=== PATIENT | male | born 1995 | race Caucasian/White ===

== ENCOUNTER 2021-07-22 10:50 | Outpatient (REF) | payer OTHER, SELFPAY ==
[2021-07-22 11:16] LABS: MANUAL DIFF FLAG NO
[2021-07-22 11:47] LABS: Basophils Percent Auto 0.6 % (0-2); Eosinophils Absolute Auto 0.1 X10*3/uL (0.0-0.4); Eosinophils Percent Auto 1.1 % (0-4); Hematocrit 43.4 % (42.0-52.0); Imm Gran Abs Auto 0.01 X10*3/uL (0.00-0.03); Imm Gran Pct Auto 0.2 % (0.0-0.4); Lymphocytes Percent Auto 35.8 % (20-40); Mean Corpuscular HGB Conc 32.3 g/dl (31.0-36.0); Mean Corpuscular Hemoglobin 25.2 pg (27.0-33.0); Mean Corpuscular Volume 78.1 fL (80.0-98.0); Mean Platelet Volume 10.6 fL (9.4-12.4); Monocytes Absolute Auto 0.4 X10*3/uL (0.1-1.2); Monocytes Percent Auto 6.4 % (2-11); Neutrophils Absolute Auto 3.1 x10*3/uL (2.0-8.3); Neutrophils Percent Auto 55.9 % (45-73); Platelet Count 345 X10*3/uL (160-400); Red Blood Count 5.56 X10*6/uL (4.60-5.80); Red Cell Distribution Width 13.7 % (11.0-16.0); White Blood Count 5.5 X10*3/uL (4.8-10.8)
[2021-07-22 12:24] LABS: Alanine Aminotransferase 30 U/L (0-40); Albumin Level 4.5 g/dL (3.5-5.0); Alkaline Phosphatase 118 U/L (39-117); Anion Gap 12 (12-20); Aspartate Amino Transferase 24 U/L (5-37); Bilirubin Total 0.3 mg/dL (0.0-1.0); Blood Urea Nitrogen 9 mg/dL (9-16); Calcium 9.8 mg/dL (8.4-10.2); Carbon Dioxide 26 mmol/L (22-29); Chloride 105 mmol/L (96-108); Cholesterol 192 mg/dL; Estimated Glomerular Filt Rate > 60; Glucose Fasting 101 mg/dL (60-99); HDL Cholesterol 34 mg/dL; LDL Cholesterol Calculated 131 mg/dl; Potassium 4.3 mmol/L (3.3-5.1); Sodium 139 mmol/L (135-145); Total Protein 7.9 g/dL (6.5-8.0); Triglycerides 136 mg/dL
[2021-07-22 12:34] LABS: TSH reflex Free T4 0.85 uIU/mL (0.32-4.0)
== END 2021-07-22 10:51 | disposition home or self-care (01) ==
LOC: HO.LAB 10:50
PROVIDERS: PCP Nurse Practitioner Family; Visit Provider Nurse Practitioner Family
DX: I10 Essential (primary) hypertension (principal); F41.9 Anxiety disorder, unspecified; F32.A Depression, unspecified; E78.00 Pure hypercholesterolemia, unspecified; Z76.89 Persons encountering health services in other specified circumstances
CPT/HCPCS: 36415; 80053; 80061; 84443; 85025

== ENCOUNTER 2021-09-30 14:27 | Outpatient (REF) | payer OTHER, SELFPAY ==
--- NOTE | ~2021-09-30 | XR_ITS ---
EXAMINATION: XR FOOT, LEFT CLINICAL INFORMATION: Pain on the plantar surface of left heel/foot COMPARISON: None TECHNIQUE: AP, lateral, and oblique views of the left foot. FINDINGS: The bones and soft tissues are normal. No fracture. Alignment is anatomic. Joint spaces are maintained. XR/XR foot LT min 3V IMPRESSION: Unremarkable left foot exam.
== END 2021-09-30 14:28 | disposition home or self-care (01) ==
LOC: HO.XRAY 14:27
PROVIDERS: PCP Nurse Practitioner Family; Visit Provider Nurse Practitioner Family
DX: M79.672 Pain in left foot (principal)
CPT/HCPCS: 73630

== ENCOUNTER → 2021-10-18 12:05 | Outpatient (REF) | payer OTHER, SELFPAY ==
--- NOTE | 2021-10-18 12:11 | ECG_ITS ---
Test Reason : HTN Blood Pressure : / mmHG Vent. Rate : 073 BPM Atrial Rate : 073 BPM P-R Int : 138 ms QRS Dur : 092 ms QT Int : 352 ms P-R-T Axes : 021 032 012 degrees QTc Int : 387 ms Normal sinus rhythm Normal ECG No previous ECGs available Referred By: Geneva Melissa Electronically Signed By:Lance Gordon
== END ==
LOC: HO.CARD 12:05
PROVIDERS: PCP Nurse Practitioner Family; Visit Provider Nurse Practitioner Family
DX: I10 Essential (primary) hypertension (principal)
CPT/HCPCS: 93005

== ENCOUNTER 2021-10-31 02:29 | Emergency (ER) | payer OTHER, SELFPAY ==
--- NOTE | ~2021-10-31 | XR_ITS ---
EXAMINATION: XR CHEST CLINICAL INFORMATION: Chest pain COMPARISON: 01/17/2017 TECHNIQUE: Frontal view of the chest was obtained. FINDINGS: Cardiac leads overlie the chest. The lungs are well expanded. There is no focal consolidation, edema, or effusion. No pneumothorax. The cardiomediastinal silhouette is within normal limits. No acute osseous abnormality. XR/XR chest 1V IMPRESSION: Clear lungs.
--- NOTE | 2021-10-31 02:34 | ECG_ITS ---
Test Reason : CHEST PAIN Blood Pressure : / mmHG Vent. Rate : 091 BPM Atrial Rate : 091 BPM P-R Int : 146 ms QRS Dur : 086 ms QT Int : 346 ms P-R-T Axes : 047 030 021 degrees QTc Int : 425 ms Normal sinus rhythm Normal ECG When compared with ECG of 18-OCT-2021 12:13, Nonspecific T wave abnormality now evident in Lateral leads Referred By: Estee Lau Electronically Signed By:MICHAEL BETANCOURT
[2021-10-31 02:46] VITALS: BP 164/117; PULSE 77; RESP 17; TEMP 37; O2SAT 98; BMI 37.3
--- NOTE | 2021-10-31 02:51 | ED.CHESTPAIN ---
HPI - Chest Pain General Chief Complaint: Chest Pain Stated Complaint: Chest Pain, 191/145 BP Time Seen by Provider: 10/31/21 02:47 History of Present Illness HPI narrative: Patient is a 25-year-old male presents today with having chest pain. The chest pain is mid chest. Not associated with any shortness breath diaphoresis. It is fairly sudden onset. No history of blood clots. No history of travel. No family history of blood clots. Patient has a history of hypertension. No history of diabetes, no history of NE no family history of NE. Patient from home. Positive coughing but patient is immunized for COVID. No diaphoresis. History of high blood pressure patient's baseline on lisinopril. Last dose was yesterday. Patient been having similar pains at night. Wakes him up. No shortness of breath associated with these episodes. Related Data Home Medications Medication Instructions Recorded Confirmed emtricitabine 200 mg-tenofovir 1 tab PO DAILY 07/22/21 10/18/21 disoproxil fumarate 300 mg tablet Previous Rx's Medication Instructions Recorded diclofenac sodium 1 % topical gel 2 g TOPICAL QID #100 g 07/22/21 (Voltaren Arthritis Pain) blood pressure monitor #1 ea 09/29/21 ibuprofen 600 mg tablet 600 mg PO Q6-8H PRN #30 tab 09/30/21 hydroxyzine HCl 10 mg tablet 10 mg PO BID PRN #10 tab 10/18/21 lisinopril 5 mg tablet 5 mg PO DAILY #30 tab 10/18/21 Allergies Allergy/AdvReac Type Severity Reaction Status Date / Time No Known Allergies Allergy Verified 10/18/21 11:43 [No Known Allergies*] Review of Systems Review of Systems: Positive chest pain No shortness breath no diaphoresis Yes all other systems are reviewed and are negative FORMERLY [facility] Past Medical History Attestation statement: The following information was validated with the patient. Surgical History No pertinent past surgical history Family History Family History Mother HTN (hypertension) Heart attack Social History Social History Household Members Other:: partner Housing: Apartment Alcohol intake: current Alcohol intake frequency: holidays/special occasions only Patient Tobacco Use Status: Never used Tobacco e-Cigarette/Vaping Use: Never Used Second Hand Smoke Exposure: No Advance Directives: No Advance Directives Information Provided: Yes service: No Current occupational status: employed Current occupational exposures/hazards: No Cognitive needs: No Hearing needs: No Vision needs: Yes Physical Exam Vital Signs: Vital Signs: Last Vital Signs Temp 98.6 F 10/31/21 02:46 Pulse 82 10/31/21 04:40 Resp 20 10/31/21 04:40 BP 140/98 H 10/31/21 04:40 Pulse Ox 97 10/31/21 04:40 BMI result Body Mass Index 37.3 Appearance: Alert. Oriented X3. No acute distress. Eyes: Pupils equal, round and reactive to light. ENT: Pharynx normal. Neck: Normal inspection. Neck supple. No lymph nodes noted. No crepitus CVS: Normal heart rate and rhythm. Pulses normal. Normal S1 and S2 Respiratory: No respiratory distress. Breath sounds normal. No Wheezing. No rales Abdomen: Soft and nontender. No rigidity. No distention. good BS x4 Skin: Skin warm and dry. Normal skin color. Normal skin turgor. Extremities: No lower extremity edema. Neurovascular intact to all extremities. No Lacerations. No Rash Neuro: Oriented X 3. No motor deficit. No sensory deficit. Moving all extermities. No slurred speech MDM - Chest Pain MDM Narrative Medical decision making narrative: Showed a sinus pattern heart rate is 90 [place] QRS QTC within normal limits is no acute ST segment elevation noted. Two sets of cardiac enzymes are negative. Patient's history not consistent with ACS. Patient's has no risk for PE. Will discharge patient home. In stable condition. Blood pressure monitor given medication with good results. Explained to patient the need for follow-up. In stable condition Medical Records Data Attestation: I reviewed the patient's medical records. Lab Data Attestation: I reviewed the patient's lab results. Result diagrams: 10/31/21 02:56 10/31/21 02:56 Labs: Lab Results 10/31/21 10/31/21 10/31/21 Range/Units 02:56 02:56 02:56 WBC 6.6 (4.8-10.8) X10*3/uL RBC 5.29 (4.60-5.80) X10*6/uL Hgb 13.1 L (14.0-18.0) g/dl Hct 41.0 L (42.0-52.0) % MCV 77.5 L (80.0-98.0) fL MCH 24.8 L (27.0-33.0) pg MCHC 32.0 (31.0-36.0) g/dl RDW 14.3 (11.0-16.0) % Plt Count 330 (160-400) X10*3/uL MPV 10.6 (9.4-12.4) fL Immature Gran % (Auto) 0.2 (0.0-0.4) % Neut % (Auto) 44.7 L (45-73) % Lymph % (Auto) 43.8 H (20-40) % [place] % (Auto) 9.0 (2-11) % Eos % (Auto) 1.8 (0-4) % Baso % (Auto) 0.5 (0-2) % Lymph # (Auto) 2.9 (1.2-4.9) X10*3/uL [place] # (Auto) 0.6 (0.1-1.2) X10*3/uL Eos # (Auto) 0.1 (0.0-0.4) X10*3/uL Baso # (Auto) 0.0 (0.0-0.2) X10*3/uL Abs Immat Gran (auto) 0.01 (0.00-0.03) X10*3/uL Absolute Neuts (auto) 2.9 (2.0-8.3) x10*3/uL Absolute Nucleated RBC 0.000 (0.0-0.012) X10*3/uL Nucleated RBC % (auto) 0.0 (0.0-0.2) /100WBC Sodium 138 (135-145) mmol/L Potassium 3.8 (3.3-5.1) mmol/L Chloride 105 (96-108) mmol/L Carbon Dioxide 26 (22-29) mmol/L Anion Gap 11 L (12-20) BUN 8 L (9-16) mg/dL Creatinine 0.89 (0.5-1.4) mg/dL Estim Creat Clear Calc 160.4 Estimated GFR > 60 Random Glucose 128 H (60-115) mg/dL Calcium 9.0 D (8.4-10.2) mg/dL Troponin I High Sens (<3.5-35.0) ng/L COVID-19 ([facility]LENE) Negative (Negative) COVID-19 Clin Com See Note 10/31/21 10/31/21 Range/Units 02:56 03:58 WBC (4.8-10.8) X10*3/uL RBC (4.60-5.80) X10*6/uL Hgb (14.0-18.0) g/dl Hct (42.0-52.0) % MCV (80.0-98.0) fL MCH (27.0-33.0) pg MCHC (31.0-36.0) g/dl RDW (11.0-16.0) % Plt Count (160-400) X10*3/uL MPV (9.4-12.4) fL Immature Gran % (Auto) (0.0-0.4) % Neut % (Auto) (45-73) % Lymph % (Auto) (20-40) % [place] % (Auto) (2-11) % Eos % (Auto) (0-4) % Baso % (Auto) (0-2) % Lymph # (Auto) (1.2-4.9) X10*3/uL [place] # (Auto) (0.1-1.2) X10*3/uL Eos # (Auto) (0.0-0.4) X10*3/uL Baso # (Auto) (0.0-0.2) X10*3/uL Abs Immat Gran (auto) (0.00-0.03) X10*3/uL Absolute Neuts (auto) (2.0-8.3) x10*3/uL Absolute Nucleated RBC (0.0-0.012) X10*3/uL Nucleated RBC % (auto) (0.0-0.2) /100WBC Sodium (135-145) mmol/L Potassium (3.3-5.1) mmol/L Chloride (96-108) mmol/L Carbon Dioxide (22-29) mmol/L Anion Gap (12-20) BUN (9-16) mg/dL Creatinine (0.5-1.4) mg/dL Estim Creat Clear Calc Estimated GFR Random Glucose (60-115) mg/dL Calcium (8.4-10.2) mg/dL Troponin I High Sens < 3.5 < 3.5 (<3.5-35.0) ng/L COVID-19 ([facility]LENE) (Negative) COVID-19 Clin Com Discharge Plan Discharge Clinical Impression: Hypertension, Chest pain Patient Disposition: Home, Self-Care Prescriptions: No Action ibuprofen 600 mg tablet 600 mg PO Q6-8H PRN (Reason: for pain) Qty: 30 0RF emtricitabine-tenofovir (TDF) 200-300 mg tablet 1 tab PO DAILY 0RF diclofenac sodium [Voltaren Arthritis Pain] 1 % gel 2 g topical QID Qty: 100 0RF Rx Instructions: apply to single elbow, wrist or hand; for hand includes palm/fingers/back of hand lisinopril 5 mg tablet 5 mg PO DAILY Qty: 30 0RF hydroxyzine HCl 10 mg tablet 10 mg PO BID PRN (Reason: anxiety) Qty: 10 0RF (DME) blood pressure monitor Kit See Rx Instructions .Route Qty: 1 0RF Rx Instructions: As directed Referrals: Physician,Unknown J [Primary Care Provider] -
[2021-10-31] MEDS: Magnesium Hydrox/Alum Hydrox 30 ML ORAL.SUSP PO (02:59)
[2021-10-31] MEDS: Aspirin 81 MG TAB.CHEW 324 MG PO (02:59)
[2021-10-31] MEDS: lisinopriL 10 MG TABLET PO (02:59)
[2021-10-31 03:02] VITALS: BP 145/101; PULSE 85; RESP 17; O2SAT 98
[2021-10-31 03:02] LABS: Basophils Percent Auto 0.5 % (0-2); Eosinophils Absolute Auto 0.1 X10*3/uL (0.0-0.4); Eosinophils Percent Auto 1.8 % (0-4); Hemoglobin 13.1 g/dl (14.0-18.0); Imm Gran Abs Auto 0.01 X10*3/uL (0.00-0.03); Imm Gran Pct Auto 0.2 % (0.0-0.4); Lymphocytes Absolute Auto 2.9 X10*3/uL (1.2-4.9); Lymphocytes Percent Auto 43.8 % (20-40); MANUAL DIFF FLAG NO; Mean Corpuscular Hemoglobin 24.8 pg (27.0-33.0); Mean Corpuscular Volume 77.5 fL (80.0-98.0); Mean Platelet Volume 10.6 fL (9.4-12.4); Monocytes Absolute Auto 0.6 X10*3/uL (0.1-1.2); Neutrophils Absolute Auto 2.9 x10*3/uL (2.0-8.3); Neutrophils Percent Auto 44.7 % (45-73); Platelet Count 330 X10*3/uL (160-400); Red Blood Count 5.29 X10*6/uL (4.60-5.80); Red Cell Distribution Width 14.3 % (11.0-16.0); White Blood Count 6.6 X10*3/uL (4.8-10.8)
[2021-10-31 03:17] LABS: Anion Gap 11 (12-20); Blood Urea Nitrogen 8 mg/dL (9-16); Carbon Dioxide 26 mmol/L (22-29); Chloride 105 mmol/L (96-108); Creatinine Clr Calc Pharmacy 160.4; Estimated Glomerular Filt Rate > 60; Glucose Random 128 mg/dL (60-115); Potassium 3.8 mmol/L (3.3-5.1); Sodium 138 mmol/L (135-145)
[2021-10-31 03:20] LABS: Troponin-I High Sensitivity < 3.5 ng/L (<3.5-35.0)
[2021-10-31 03:21] VITALS: BP 138/102; PULSE 81; RESP 16; O2SAT 98
[2021-10-31 03:21] LABS: COVID-19 Test Negative (Negative)
[2021-10-31 03:44] VITALS: BP 149/101; PULSE 84; RESP 20; O2SAT 98
[2021-10-31 04:22] LABS: Troponin-I High Sensitivity < 3.5 ng/L (<3.5-35.0)
[2021-10-31 04:40] VITALS: BP 140/98; PULSE 82; RESP 20; O2SAT 97
--- NOTE | 2021-10-31 05:03 | ED.CHESTPAIN ---
HPI - Chest Pain General Chief Complaint: Chest Pain Stated Complaint: Chest Pain, 191/145 BP Time Seen by Provider: 10/31/21 02:47 Related Data Home Medications Medication Instructions Recorded Confirmed emtricitabine 200 mg-tenofovir 1 tab PO DAILY 07/22/21 10/18/21 disoproxil fumarate 300 mg tablet Previous Rx's Medication Instructions Recorded diclofenac sodium 1 % topical gel 2 g TOPICAL QID #100 g 07/22/21 (Voltaren Arthritis Pain) blood pressure monitor #1 ea 09/29/21 ibuprofen 600 mg tablet 600 mg PO Q6-8H PRN #30 tab 09/30/21 hydroxyzine HCl 10 mg tablet 10 mg PO BID PRN #10 tab 10/18/21 lisinopril 5 mg tablet 5 mg PO DAILY #30 tab 10/18/21 Allergies Allergy/AdvReac Type Severity Reaction Status Date / Time No Known Allergies Allergy Verified 10/18/21 11:43 [No Known Allergies*] PMFSH Past Medical History Surgical History No pertinent past surgical history Family History Family History Mother HTN (hypertension) Heart attack Social History Social History Household Members Other:: partner Housing: Apartment Alcohol intake: current Alcohol intake frequency: holidays/special occasions only Patient Tobacco Use Status: Never used Tobacco e-Cigarette/Vaping Use: Never Used Second Hand Smoke Exposure: No Advance Directives: No Advance Directives Information Provided: Yes service: No Current occupational status: employed Current occupational exposures/hazards: No Cognitive needs: No Hearing needs: No Vision needs: Yes Physical Exam Vital Signs: Vital Signs: Last Vital Signs Temp 98.6 F 10/31/21 02:46 Pulse 82 10/31/21 04:40 Resp 20 10/31/21 04:40 BP 140/98 H 10/31/21 04:40 Pulse Ox 97 10/31/21 04:40 BMI result Body Mass Index 37.3 MDM - Chest Pain Lab Data Result diagrams: 10/31/21 02:56 10/31/21 02:56 Labs: Lab Results 10/31/21 10/31/21 10/31/21 Range/Units 02:56 02:56 02:56 WBC 6.6 (4.8-10.8) X10*3/uL RBC 5.29 (4.60-5.80) X10*6/uL Hgb 13.1 L (14.0-18.0) g/dl Hct 41.0 L (42.0-52.0) % MCV 77.5 L (80.0-98.0) fL MCH 24.8 L (27.0-33.0) pg MCHC 32.0 (31.0-36.0) g/dl RDW 14.3 (11.0-16.0) % Plt Count 330 (160-400) X10*3/uL MPV 10.6 (9.4-12.4) fL Immature Gran % (Auto) 0.2 (0.0-0.4) % Neut % (Auto) 44.7 L (45-73) % Lymph % (Auto) 43.8 H (20-40) % [place] % (Auto) 9.0 (2-11) % Eos % (Auto) 1.8 (0-4) % Baso % (Auto) 0.5 (0-2) % Lymph # (Auto) 2.9 (1.2-4.9) X10*3/uL [place] # (Auto) 0.6 (0.1-1.2) X10*3/uL Eos # (Auto) 0.1 (0.0-0.4) X10*3/uL Baso # (Auto) 0.0 (0.0-0.2) X10*3/uL Abs Immat Gran (auto) 0.01 (0.00-0.03) X10*3/uL Absolute Neuts (auto) 2.9 (2.0-8.3) x10*3/uL Absolute Nucleated RBC 0.000 (0.0-0.012) X10*3/uL Nucleated RBC % (auto) 0.0 (0.0-0.2) /100WBC Sodium 138 (135-145) mmol/L Potassium 3.8 (3.3-5.1) mmol/L Chloride 105 (96-108) mmol/L Carbon Dioxide 26 (22-29) mmol/L Anion Gap 11 L (12-20) BUN 8 L (9-16) mg/dL Creatinine 0.89 (0.5-1.4) mg/dL Estim Creat Clear Calc 160.4 Estimated GFR > 60 Random Glucose 128 H (60-115) mg/dL Calcium 9.0 D (8.4-10.2) mg/dL Troponin I High Sens (<3.5-35.0) ng/L COVID-19 ([facility]) Negative (Negative) COVID-19 Clin Com See Note 10/31/21 10/31/21 Range/Units 02:56 03:58 WBC (4.8-10.8) X10*3/uL RBC (4.60-5.80) X10*6/uL Hgb (14.0-18.0) g/dl Hct (42.0-52.0) % MCV (80.0-98.0) fL MCH (27.0-33.0) pg MCHC (31.0-36.0) g/dl RDW (11.0-16.0) % Plt Count (160-400) X10*3/uL MPV (9.4-12.4) fL Immature Gran % (Auto) (0.0-0.4) % Neut % (Auto) (45-73) % Lymph % (Auto) (20-40) % [place] % (Auto) (2-11) % Eos % (Auto) (0-4) % Baso % (Auto) (0-2) % Lymph # (Auto) (1.2-4.9) X10*3/uL [place] # (Auto) (0.1-1.2) X10*3/uL Eos # (Auto) (0.0-0.4) X10*3/uL Baso # (Auto) (0.0-0.2) X10*3/uL Abs Immat Gran (auto) (0.00-0.03) X10*3/uL Absolute Neuts (auto) (2.0-8.3) x10*3/uL Absolute Nucleated RBC (0.0-0.012) X10*3/uL Nucleated RBC % (auto) (0.0-0.2) /100WBC Sodium (135-145) mmol/L Potassium (3.3-5.1) mmol/L Chloride (96-108) mmol/L Carbon Dioxide (22-29) mmol/L Anion Gap (12-20) BUN (9-16) mg/dL Creatinine (0.5-1.4) mg/dL Estim Creat Clear Calc Estimated GFR Random Glucose (60-115) mg/dL Calcium (8.4-10.2) mg/dL Troponin I High Sens < 3.5 < 3.5 (<3.5-35.0) ng/L COVID-19 ([facility]) (Negative) COVID-19 Clin Com Discharge Plan Discharge Clinical Impression: Hypertension, Chest pain Patient Disposition: Home, Self-Care Instructions: Chest Pain (ED), Hypertension (ED) Prescriptions: No Action ibuprofen 600 mg tablet 600 mg PO Q6-8H PRN (Reason: for pain) Qty: 30 0RF emtricitabine-tenofovir (TDF) 200-300 mg tablet 1 tab PO DAILY 0RF diclofenac sodium [Voltaren Arthritis Pain] 1 % gel 2 g topical QID Qty: 100 0RF Rx Instructions: apply to single elbow, wrist or hand; for hand includes palm/fingers/back of hand lisinopril 5 mg tablet 5 mg PO DAILY Qty: 30 0RF hydroxyzine HCl 10 mg tablet 10 mg PO BID PRN (Reason: anxiety) Qty: 10 0RF (DME) blood pressure monitor Kit See Rx Instructions .Route Qty: 1 0RF Rx Instructions: As directed Referrals: Physician,Unknown J [Primary Care Provider] -
[2021-10-31 05:13] VITALS: BP 140/88; PULSE 81; RESP 15; TEMP 36.8; O2SAT 97
== END 2021-10-31 05:24 | disposition home or self-care (01) ==
PROVIDERS: Emergency Provider Emergency Medicine Emergency Medical Services
DX: R07.89 Other chest pain (principal); I10 Essential (primary) hypertension; Z20.822 Contact with and (suspected) exposure to COVID-19; Z79.899 Other long term (current) drug therapy
CPT/HCPCS: 36415; 71045; 80048; 84484; 85025; 87635; 93005; 99283; 99285

== ENCOUNTER 2022-03-04 09:04 | Outpatient (REF) | payer OTHER, SELFPAY ==
[2022-03-04 10:49] LABS: Vitamin D 25-OH Total 16.5 ng/mL (>30)
[2022-03-04 10:59] LABS: Folate 14.2 ng/mL (> or = 4.0); Vitamin B12 307 pg/mL (200-900)
[2022-03-06 03:36] LABS: HBS Num1 24.78 mIU/mL (0-7.99); HBc Num1 0.11 S/CO (0.00-0.79); HBsAGNum1 0.24 S/CO (0.00-0.99); Hepatitis B Core Antibody Nonreactive (Nonreactive); Hepatitis B Surface Antigen Negative (Negative); ~HepC Num1 0.08 S/CO (0.00-0.79); ~Hepatitis B Surface Antibody REACTIVE (Nonreactive); ~Hepatitis C Antibody Nonreactive (Nonreactive)
[2022-03-07 00:52] LABS: Mumps Virus IgG Antibody <9.00 AU/mL; Rubella IgG Antibody <0.90 Index
== END 2022-03-04 09:05 | disposition home or self-care (01) ==
LOC: HO.LAB 09:04
PROVIDERS: PCP Nurse Practitioner Family; Visit Provider Nurse Practitioner Family
DX: Z01.84 Encounter for antibody response examination (principal)
CPT/HCPCS: 36415; 82306; 82607; 82746; 86704; 86706; 86735; 86762; 86765; 86787; 86803; 87340